=== PATIENT | female | born 1950 | race African-American/Black ===

== ENCOUNTER 2018-10-12 13:59 | Emergency (ER) | payer MEDICARE, OTHER ==
[~2018-10-12] VITALS: Ht 170.2 cm; Wt 65.0 kg
[2018-10-12] MEDS ORDERED: EPINEPHRINE 0.1MG/ML (1:10,000) 10ML SYR ONE (14:00)
[2018-10-12 14:02] VITALS: BP 0/0
== END 2018-10-12 14:07 | disposition expired ==
LOC: ER 13:59
DX: I46.9 Cardiac arrest, cause unspecified (principal)
CPT/HCPCS: 31500; 36680; 92950; 99285; J3490